=== PATIENT | female | born 1980 | race African-American/Black ===

== ENCOUNTER 2017-09-01 13:11 | Emergency (ER) | payer OTHER ==
[~2017-09-01] VITALS: Ht 172.7 cm; Wt 165.0 kg
[~2017-09-01 13:11] MED LIST: ACET325 PO; BUME0.5T PO; GABA250S PO; LORTA10 PO; OXYB5TAB PO; SPIR25TA PO; VENTAER INH; ZOCO40TA PO; ZOLO50TA PO
[2017-09-01 13:14] VITALS: BP 129/68; PULSE 76; RESP 14; TEMP 97.9; O2SAT 97
[2017-09-01] MEDS ORDERED: ROBA500T PO (13:38)
[2017-09-01] MEDS ORDERED: MEDR4PAK PO (13:38)
--- NOTE | 2017-09-01 13:39 | PD ---
HPI Chief Complaint: Hip Injury Time Seen by Provider: 13:35 Travel History International Travel<30 days: No Contact w/Intl Traveler<30days: No Traveled to known affect area: No History of Present Illness HPI 37-year-old female presents to the emergency department with complaint of left hip pain for the past 3 days. Reports history of arthritis in her hips. Pain radiates down the left leg. Denies new or recent injury. Denies encopresis, incontinence, saddle anesthesias. Denies change in stool or urine. Denies IV drug use or cancer. Denies fever, abdominal pain, vomiting. Denies difficulty ambulating. Denies loss of sensation, decreased range of motion, decreased strength bilateral lower 2 days. Reports paresthesias feet. Symptoms are mild in severity. Pain is worse with movement. Pain is decreased with the left leg elevated. Has taken prescribed Lortab 10 mg with minimal relief of pain. Allergies to prochlorperazine, tuberculin, purified protein derivative. Dr. Thakur is primary care provider. Has no medical complaints. No other modifying factors or associated signs and symptoms. PFSH Past Medical History Hx Anticoagulant Therapy: No Arthritis: Yes Asthma: Yes Blood Disorders: No Anxiety: Yes Depression: Yes Heart Rhythm Problems: No Cancer: No Cardiovascular Problems: No High Cholesterol: Yes Chemotherapy: No Chest Pain: No Congestive Heart Failure: Yes COPD: No Cerebrovascular Accident: No Diabetes: No Diminished Hearing: No Endocrine: No Genitourinary: No Hepatitis: Yes (B) Hiatal Hernia: No Hypertension: No Immune Disorder: Yes (HEP. B) Implanted Vascular Access Dvce: No Musculoskeletal: Yes (RA) Neurologic: No Psychiatric: No Reproductive: No Respiratory: No Immunizations Current: Yes Sleep Apnea: No Thyroid Disease: No ?: Not : 5 Para: 6 Miscarriage: 0 : 0 Tubal Ligation: Yes (2006) Past Surgical History Abdominal Surgery: Yes (GASTRIC BYPASS 11/2013 [facility] ) Section: Yes (X2) Gynecologic Surgery: Yes (tubal ligation, 2 , uterine ablation) Hysterectomy: No Other Surgery: Yes (HERNIA REMOVAL 2012) Social History Alcohol Use: No Tobacco Use: No Substance Use: Yes (OCCASIONAL) Allergies-Medications (Allergen,Severity, Reaction): Coded Allergies: prochlorperazine (Verified Allergy, Severe, 11/3/17) tuberculin, purified protein deriva (Verified Allergy, Intermediate, ARM SWELLING, 09/01/17) Reported Meds & Prescriptions Reported Meds & Active Scripts Active Medrol Dosepak (Methylprednisolone) 4 Mg Dspk 4 Mg PO DIRECTED Per Pharmacist direction Robaxin (Methocarbamol) 500 Mg Tab 500 Mg PO QID PRN Reported Zoloft (Sertraline HCl) 50 Mg Tab 50 Mg PO DAILY Tylenol (Acetaminophen) 325 Mg Tab 325 Mg PO Q4H Zocor 40 mg (Simvastatin) 40 Mg Tab 1 Tab PO HS Neurontin (Gabapentin) 250 Mg/5 Ml Priya 300 Mg PO TID Bumex (Bumetanide) 0.5 Mg Tab 1 Mg PO BID Spironolactone 25 Mg Tab 25 Mg PO DAILY Hydrocodone/Acetaminophen 10 mg/325 mg 10 Mg/325 Mg Tab 1 Tab PO Q4H PRN Ventolin Hfa (Albuterol Sulfate) 18 Gm Aero 2 Puff INH DIRECTED Oxybutynin Chloride Er (Oxybutynin Chloride) 5 Mg Tab 5 Mg PO TID Review of Systems Except as stated in HPI: all other systems reviewed are Neg Physical Exam Narrative GENERAL: Well-nourished, well-developed black female patient, in no acute distress; afebrile, nontoxic-appearing SKIN: Warm and dry. HEAD: Atraumatic. Normocephalic. EYES: Pupils equal and round. No scleral icterus. No injection or drainage. ENT: Mucosa pink and moist. Airway patent. NECK: Trachea midline. CARDIOVASCULAR: Regular rate. RESPIRATORY: No accessory muscle use. GASTROINTESTINAL: Morbidly obese. MUSCULOSKELETAL: Bilateral lower extremities supple and non-tense with 2+ pedal pulses and sensory intact; with full range of motion and 5/5 strength. She is morbidly obese which limited physical exam: Unable to assess DTRs. Active dorsiflexion and extension of bilateral feet. Unable to assess straight leg raises bilaterally. Ambulatory in room with a limp to the left lower extremity. Sitting up in bed at 90. No obvious deformities. No clubbing. No cyanosis. No edema. BACK: No midline point tenderness on palpation of the lumbar spine. Tenderness on palpation of the left lumbar iliosacral area. No obvious deformities. NEUROLOGICAL: Awake and alert. Oriented 3. No obvious cranial nerve deficits. Motor grossly within normal limits. Normal speech. Moves all extremities. 5/5 strength to all extremities. Sensory intact. PSYCHIATRIC: Appropriate mood and affect; insight and judgment normal. Data Data Last Documented VS Vital Signs Date Time Temp Pulse Resp B/P (MAP) Pulse Ox O2 Delivery O2 Flow Rate FiO2 09/01/17 13:14 97.9 76 14 129/68 (88) 97 Orders Orders Ketorolac Inj (Toradol Inj) (09/01/17 13:45) Orphenadrine Inj (Norflex Inj) (09/01/17 13:45) Ed Discharge Order (09/01/17 13:39) [facility] Medical Decision Making Medical Screen Exam Complete: Yes Emergency Medical Condition: Yes Medical Record Reviewed: Yes Differential Diagnosis Low back pain, sciatica, arthritis Narrative Course 37-year-old female physical examination Consistent with left-sided low back pain with left-sided sciatica. Denies injury. Denies encopresis, incontinence , saddle anesthesias. Denies IV drug use or cancer. No midline tenderness on palpation of the lumbar spine. Patient is ambulatory in the room with a limp to the left lower extremity. Toradol and Norflex administered in the ER. Robaxin, Medrol Dosepak prescribed for home. Patient has prescribed Lortabs for pain. Instructed patient to follow up with primary care provider. Patient verbalizes understanding and agreement with treatment plan. Patient is medically cleared and stable for discharge. Discussed reasons to return to the emergency department. Patient agrees with treatment plan. The patients vital signs are stable and the patient is stable for outpatient follow-up and treatment. Patient discharged home, stable and in no acute distress. Diagnosis Primary Impression: Left-sided low back pain with left-sided sciatica Qualified Codes: M54.42 - Lumbago with sciatica, left side Referrals: Primary Care Physician Patient Instructions: Acute Low Back Pain (ED), General Instructions, Sciatica (ED) Additional Instructions: Tylenol or ibuprofen as directed and as needed for pain Robaxin as prescribed and as needed for muscle spasms Heating pad and/or ice to affected area to reduce pain Avoid aggravating activities; increase activity as tolerated Follow-up with primary care provider Return to emergency department immediately with worsening of symptoms Med/Other Pt SpecificInfo: Prescription(s) given Scripts Methylprednisolone Dosepak (Medrol Dosepak) 4 Mg Dspk 4 MG PO DIRECTED, #1 DSPK 0 Refills Per Pharmacist direction Prov: Elma Avelar 09/01/17 Methocarbamol (Robaxin) 500 Mg Tab 500 MG PO QID Y for MUSCLE SPASM, #30 TAB 0 Refills Prov: Elma Avelar 09/01/17 Disposition: 01 DISCHARGE HOME Condition: Stable Elma Avelar Sep 01, 2017 13:39
[2017-09-01] MEDS ORDERED: ORPHENADRINE INJ 60 MG/2 ML AMP IM ONE (13:45)
[2017-09-01] MEDS ORDERED: KETOROLAC TROMETHAMINE 60 MG/2 ML (IM) VIAL IM ONE (13:45)
== END 2017-09-01 13:52 | disposition home or self-care (01) ==
LOC: NEPK 13:11
DX: M54.42 Lumbago with sciatica, left side (principal); M19.90 Unspecified osteoarthritis, unspecified site; J45.909 Unspecified asthma, uncomplicated; F41.9 Anxiety disorder, unspecified; F32.9 Major depressive disorder, single episode, unspecified; E78.00 Pure hypercholesterolemia, unspecified; I50.9 Heart failure, unspecified; Z79.899 Other long term (current) drug therapy; Z88.8 Allergy status to other drugs, medicaments and biological substances
CPT/HCPCS: 96372; 99284; J1885; J2360

== ENCOUNTER 2017-09-18 17:58 | Emergency (ER) | payer OTHER, MEDICAID ==
[~2017-09-18] VITALS: Ht 172.7 cm; Wt 167.0 kg
[~2017-09-18 17:58] MED LIST changes: +MEDR4PAK PO; +ROBA500T PO
[2017-09-18 18:00] VITALS: BP 127/73; PULSE 61; TEMP 97.9; O2SAT 100
[2017-09-18] MEDS ORDERED: IRON1CAP4 PO (18:24)
[2017-09-18] MEDS ORDERED: POTA-163 PO (18:24)
[2017-09-18] MEDS ORDERED: TIZA4TAB PO (18:24)
[2017-09-18] MEDS ORDERED: ALPR.5 PO (18:24)
[2017-09-18] MEDS ORDERED: NYST1000 SWISH-SWAL (18:24)
--- NOTE | 2017-09-18 18:46 | PD ---
Physical Exam Date Seen by Provider: Sep 18, 2017 Time Seen by Provider: 18:44 Narrative 37-year-old grossly obese female presents emergency Department with worsening left leg pain for the past 4 days. Patient similar complaints couple of weeks ago and treated for sciatica. Patient complains of pain in the left lower calf and ankle. She denies shortness of breath or cough. She states it has felt warm, and increased pain with palpation to the area. Patient is status post gastric bypass stating that she's lost over 200 pounds. Patient is on multiple meds for her chronic pain issues. Recommend moving the patient to a medical bed for rule out DVT. Patient originally seen in K pod with medical bed pending. Data Data Last Documented VS Vital Signs Date Time Temp Pulse Resp B/P (MAP) Pulse Ox O2 Delivery O2 Flow Rate FiO2 09/18/17 18:00 97.9 61 127/73 (91) 100 Room Air Orders Orders Us Leg Venous Doppler (09/18/17 18:27) MDM Medical Record Reviewed: Yes Supervised Visit with EDVIN: Yes Narrative Course Ultrasound is ordered. Further evaluation will be performed once medical bed placement is accomplished. Condition: Stable Timmy Michael Sep 18, 2017 18:46
--- NOTE | 2017-09-18 19:50 | RADRPT ---
EXAM DATE/TIME: 09/18/2017 18:39 [facility] COMPARISON: No previous studies available for comparison. INDICATIONS : Left leg pain. MEDICAL HISTORY : Hypercholesterolemia. Rheumatoid arthritis. Congestive heart failure. Dyspnea. Hepatitis B. SURGICAL HISTORY : Tubal ligation. section. Hernia repair. Uterine ablation. ENCOUNTER: Initial ACUITY: 3 days PAIN SCORE: 5/10 LOCATION: Left leg. TECHNIQUE: Venous ultrasound of the leg was performed from the inguinal ligament to the proximal calf. Real-az e, color Doppler and spectral tracing, compression and augmentation techniques were used. FINDINGS: This is a limited quality examination; the deep venous system is not able to be identified from dista l thigh to proximal calf due to body habitus.. Flow is seen in the proximal and mid superficial femoral vein and a minimal amount of increased flow with distal compression is documented. CONCLUSION: Nondiagnostic study. The deep venous system cannot be evaluated in the distal thigh through proximal calf. Terry Ramirez MD on September 18, 2017 at 19:46 Board Certified Radiologist. This report was verified electronically.
[2017-09-18] MEDS ORDERED: PRED50 PO (20:25)
[2017-09-18] MEDS ORDERED: PERC5TAB12 PO (20:25)
--- NOTE | 2017-09-18 20:26 | PD ---
HPI Chief Complaint: Musculoskeletal Complaint Time Seen by Provider: 18:21 Travel History International Travel<30 days: No Contact w/Intl Traveler<30days: No Traveled to known affect area: No History of Present Illness HPI This patient was initially evaluated by the PA in triage, and because he is ruling out a DVT in the left lower extremity, the patient was transferred to the medical pod for lower extremity ultrasound. See his note for further details. This a 37-year-old female who is here for evaluation of left lower back pain and left leg pain worsening over the last 4 days. Pain is sharp, radiates down her posterior left leg to her foot and is worse with movements. Pain is 10 out of 10, constant. Because of the patient's obesity, the PA was concerned about possible DVT. The patient denies chest pain or dyspnea. No history of DVT or PE. No urinary or bowel incontinence or retention. No trauma. No fevers. PFSH Past Medical History Hx Anticoagulant Therapy: No Arthritis: Yes Asthma: Yes Blood Disorders: No Anxiety: Yes Depression: Yes Heart Rhythm Problems: No Cancer: No Cardiovascular Problems: No High Cholesterol: Yes Chemotherapy: No Chest Pain: No Congestive Heart Failure: Yes COPD: No Cerebrovascular Accident: No Diabetes: No Diminished Hearing: No Endocrine: No Genitourinary: No Hepatitis: Yes (B) Hiatal Hernia: No Hypertension: No Immune Disorder: Yes (HEP. B) Implanted Vascular Access Dvce: No Medical other: Yes (ARTHRITIS) Musculoskeletal: Yes (RA) Neurologic: No Psychiatric: No Reproductive: No Respiratory: No Immunizations Current: Yes Sleep Apnea: No Thyroid Disease: No Tetanus Vaccination: > 5 Years ?: Not : 5 Para: 6 Miscarriage: 0 : 0 Tubal Ligation: Yes (2006) Past Surgical History Abdominal Surgery: Yes (GASTRIC BYPASS 11/2013 [facility] ) Section: Yes (X2) Gynecologic Surgery: Yes (tubal ligation, 2 , uterine ablation) Hysterectomy: No Other Surgery: Yes (HERNIA REMOVAL 2012) Social History Alcohol Use: No Tobacco Use: No Substance Use: Yes (OCCASIONAL) Allergies-Medications (Allergen,Severity, Reaction): Coded Allergies: prochlorperazine (Verified Allergy, Severe, 09/18/17) tuberculin, purified protein deriva (Verified Allergy, Intermediate, ARM SWELLING, 09/18/17) Reported Meds & Prescriptions Reported Meds & Active Scripts Active Medrol Dosepak (Methylprednisolone) 4 Mg Dspk 4 Mg PO DIRECTED Per Pharmacist direction Robaxin (Methocarbamol) 500 Mg Tab 500 Mg PO QID PRN Reported Chromagen Softgel ([id number]) 75-60-1 Mg Capsule 1 Cap PO DAILY Potassium Chloride ER (Potassium Chloride) 20 Meq Tab 20 Meq PO DAILY Nystatin Liq 100,000 unit/ml Susp 5 Ml SWISH-SWAL QID Xanax (Alprazolam) 0.5 Mg Tab 0.5 Mg PO BID PRN Tizanidine (Tizanidine HCl) 4 Mg Tab 4 Mg PO TID Zoloft (Sertraline HCl) 50 Mg Tab 50 Mg PO DAILY Tylenol (Acetaminophen) 325 Mg Tab 325 Mg PO Q4H Zocor 40 mg (Simvastatin) 40 Mg Tab 1 Tab PO HS Neurontin (Gabapentin) 250 Mg/5 Ml Priya 600 Mg PO TID Bumex (Bumetanide) 0.5 Mg Tab 1 Mg PO BID Spironolactone 25 Mg Tab 25 Mg PO DAILY Hydrocodone/Acetaminophen 10 mg/325 mg 10 Mg/325 Mg Tab 1 Tab PO Q4H PRN Ventolin Hfa (Albuterol Sulfate) 18 Gm Aero 2 Puff INH DIRECTED Oxybutynin Chloride Er (Oxybutynin Chloride) 5 Mg Tab 5 Mg PO TID Review of Systems Except as stated in HPI: all other systems reviewed are Neg Physical Exam Narrative GENERAL: Well-developed, well-nourished, overweight, awake, alert, comfortable, no apparent distress. SKIN: Focused skin assessment warm/dry. HEAD: Atraumatic. Normocephalic. EYES: Pupils equal and round. No scleral icterus. No injection or drainage. ENT: Mucous membranes pink and moist. NECK: Trachea midline. No JVD. CARDIOVASCULAR: Regular rate and rhythm. Bilateral dorsalis pedis pulses are brisk and equal. RESPIRATORY: No accessory muscle use. Clear to auscultation. Breath sounds equal bilaterally. GASTROINTESTINAL: Abdomen soft, non-tender, nondistended. Hepatic and splenic margins not palpable. MUSCULOSKELETAL: No obvious deformities. No clubbing. No cyanosis. No numbness at the left SI joint. No midline vertebral step-off or tenderness. Normal range of motion in all joints and extremities. All compartments in bilateral lower extremities are supple. NEUROLOGICAL: Awake and alert. No obvious cranial nerve deficits. Motor grossly within normal limits. Normal speech. No saddle anesthesia. Normal motor/sensory to bilateral upper and lower extremities. PSYCHIATRIC: Appropriate mood and affect; insight and judgment normal. Data Data Last Documented VS Vital Signs Date Time Temp Pulse Resp B/P (MAP) Pulse Ox O2 Delivery O2 Flow Rate FiO2 09/18/17 18:00 97.9 61 127/73 (91) 100 Room Air Orders Orders Us Leg Venous Doppler (09/18/17 18:27) Ketorolac Inj (Toradol Inj) (09/18/17 20:30) Oxycodone-Acetamin 5-325 Mg (Percocet (09/18/17 20:30) Prednisone (Deltasone) (09/18/17 20:30) MDM Medical Decision Making Medical Screen Exam Complete: Yes Emergency Medical Condition: Yes Differential Diagnosis Sciatica, DVT Narrative Course Vital signs show heart rate 61, blood pressure 127/73, pulse ox 100% on room air , oral temp of 97.9F. Left lower extremity venous duplex ultrasound: CONCLUSION: Nondiagnostic study. The deep venous system cannot be evaluated in the distal thigh through proximal calf. Case discussed with on-call reading radiologist who states that there are no signs of DVT in the areas that were able to be evaluated, and that there are no signs to increase the suspicion of DVT in these areas. With more likely diagnosis of sciatica, and is reasonable to treat for sciatica and have the patient follow-up with their primary care physician for further workup as an outpatient. Patient was made aware of all findings and a plan. Again she does not have any red flags for low back pain. She is stable for discharge home with further workup as an outpatient. She'll be given a perception for pain medication and muscle relaxants. She was advised on when to return to the emergency department. She verbalizes understanding and agreement with plan. Diagnosis Primary Impression: Sciatica Qualified Codes: M54.32 - Sciatica, left side Referrals: Primary Care Physician 3 days Additional Instructions: Follow-up with your primary care physician this week. Return to the emergency department for worsening symptoms or any other concerns. Scripts Prednisone (Prednisone) 50 Mg Tab 50 MG PO DAILY for 5 Days, #5 TAB 0 Refills Prov: Sudhir Winslow MD 09/18/17 Oxycodone-Acetaminophen (Percocet) 5-325 mg Tab 1 TAB PO Q6H Y for PAIN, #15 TAB 0 Refills Prov: Sudhir Winslow MD 09/18/17 Disposition: 01 DISCHARGE HOME Condition: Stable Sudhir Winslow MD Sep 18, 2017 20:26
[2017-09-18] MEDS ORDERED: oxyCODONE/ACETAMINOPHEN 5 MG/325 MG TAB PO ONE (20:30)
[2017-09-18] MEDS ORDERED: KETOROLAC TROMETHAMINE 60 MG/2 ML (IM) VIAL IM ONE (20:30)
[2017-09-18] MEDS ORDERED: predniSONE 50 MG TAB PO ONE (20:30)
== END 2017-09-18 20:56 | disposition home or self-care (01) ==
LOC: NEPD 17:58
DX: M54.32 Sciatica, left side (principal); M54.5 Low back pain; E66.9 Obesity, unspecified; J45.909 Unspecified asthma, uncomplicated; F41.9 Anxiety disorder, unspecified; I11.0 Hypertensive heart disease with heart failure; I50.9 Heart failure, unspecified; M06.9 Rheumatoid arthritis, unspecified; E78.00 Pure hypercholesterolemia, unspecified
CPT/HCPCS: 93971; 96372; 99285; J1885; J7512

== ENCOUNTER 2017-11-27 23:50 | Emergency (ER) | payer MEDICAID, OTHER ==
[~2017-11-27] VITALS: Ht 170.2 cm; Wt 170.0 kg
[~2017-11-27 23:50] MED LIST changes: +ALPR.5 PO; +IRON1CAP4 PO; +NYST1000 SWISH-SWAL; +PERC5TAB12 PO; +POTA-163 PO; +PRED50 PO; +TIZA4TAB PO
[2017-11-27 23:51] VITALS: BP 102/74; PULSE 60; RESP 16; TEMP 97.8; O2SAT 100
--- NOTE | 2017-11-28 00:33 | PD ---
HPI Chief Complaint: Injury Time Seen by Provider: 00:23 Travel History International Travel<30 days: No Contact w/Intl Traveler<30days: No Traveled to known affect area: No History of Present Illness HPI 37-year-old black female presents to emergency department with complains of bilateral ankle pain. She states that she's been having pain in both ankles now radiation up into her legs and back for the past 4 days. She states that she was seen by her doctor last week for a medical checkup unrelated to her ankle pain. According to the medical record from triage she has stated that she has actually had pain since . The patient denies this. She also goes on to state that she's had some increased urinary frequency and dysuria this past week. She denies any fever or chills. No chest pain or shortness of breath. No nausea vomiting. No abdominal pain. No vaginal complaints. Symptoms are moderate. Worse with weightbearing. No alleviating factors. PFSH Past Medical History Hx Anticoagulant Therapy: No Arthritis: Yes Asthma: Yes Blood Disorders: No Anxiety: Yes Depression: Yes Heart Rhythm Problems: No Cancer: No Cardiovascular Problems: No High Cholesterol: Yes Chemotherapy: No Chest Pain: No Congestive Heart Failure: Yes COPD: No Cerebrovascular Accident: No Diabetes: No Diminished Hearing: No Endocrine: No Genitourinary: No Hepatitis: Yes (B) Hiatal Hernia: No Hypertension: No Immune Disorder: Yes (HEP. B) Implanted Vascular Access Dvce: No Musculoskeletal: Yes (RA) Neurologic: No Psychiatric: No Reproductive: No Respiratory: No Immunizations Current: Yes Sleep Apnea: No Thyroid Disease: No : 5 Para: 6 Miscarriage: 0 : 0 Tubal Ligation: Yes (2006) Past Surgical History Abdominal Surgery: Yes (GASTRIC BYPASS 11/[address] [facility] [place] ) Section: Yes (X2) Gynecologic Surgery: Yes (tubal ligation, 2 , uterine ablation) Hysterectomy: No Other Surgery: Yes (HERNIA REMOVAL 2012) Social History Alcohol Use: No Tobacco Use: No Substance Use: Yes (OCCASIONAL) Allergies-Medications (Allergen,Severity, Reaction): Coded Allergies: prochlorperazine (Verified Allergy, Severe, 11/27/17) tuberculin, purified protein deriva (Verified Allergy, Intermediate, ARM SWELLING, 11/27/17) Reported Meds & Prescriptions Reported Meds & Active Scripts Active Medrol Dosepak (Methylprednisolone) 4 Mg Dspk 4 Mg PO DIRECTED Per Pharmacist direction Macrobid (Nitrofurantoin Monoh/Nitrofur Macro) 100 Mg Cap 100 Mg PO BID 10 Days Reported Chromagen Softgel (Clrg-P-Fzwkhj-[id number]-Zn) 75-60-1 Mg Capsule 1 Cap PO DAILY Nystatin Liq 100,000 unit/ml Susp 5 Ml SWISH-SWAL QID Xanax (Alprazolam) 0.5 Mg Tab 0.5 Mg PO BID PRN Tizanidine (Tizanidine HCl) 4 Mg Tab 4 Mg PO TID Tylenol (Acetaminophen) 325 Mg Tab 325 Mg PO Q4H Zocor 40 mg (Simvastatin) 40 Mg Tab 1 Tab PO HS Neurontin (Gabapentin) 250 Mg/5 Ml Priya 600 Mg PO TID Bumex (Bumetanide) 0.5 Mg Tab 1 Mg PO BID Spironolactone 25 Mg Tab 25 Mg PO DAILY Hydrocodone/Acetaminophen 10 mg/325 mg 10 Mg/325 Mg Tab 1 Tab PO Q4H PRN Ventolin Hfa (Albuterol Sulfate) 18 Gm Aero 2 Puff INH DIRECTED Oxybutynin Chloride Er (Oxybutynin Chloride) 5 Mg Tab 5 Mg PO TID Review of Systems Except as stated in HPI: all other systems reviewed are Neg Physical Exam Narrative GENERAL: This is a morbidly obese, well-developed patient, in no apparent distress. SKIN: No rashes, ecchymoses or lesions. Warm and dry. HEAD: Atraumatic. Normocephalic. EYES: PERRL, EOMI, no discharge or injection. No scleral icterus. EARS: Clear NOSE: Nasal turbinates appear normal. THROAT: Mucosa pink and moist. Airway patent. NECK: Trachea midline. supple, moves head freely. LUNGS: Clear to auscultation. CV: Regular in rhythm. ABDOMEN: Soft nontender. Obese. No guarding or rebound. EXT: No clubbing cyanosis. Patient has a very large body habitus. She complains of pain in both ankles. There is arthritic changes noted. There is no erythema, warmth. The skin is intact. She has intact sensation with good distal pulses. Data Data Last Documented VS Vital Signs Date Time Temp Pulse Resp B/P (MAP) Pulse Ox O2 Delivery O2 Flow Rate FiO2 11/27/17 23:51 97.8 60 16 102/74 (83) 100 Room Air Orders Orders Urinalysis - C+S If Indicated (11/28/17 00:25) Urine Culture (11/28/17 00:45) Prednisone (Deltasone) (11/28/17 01:45) Nitrofurantoin Monohyd Macrocr (Macrobid (11/28/17 01:45) Ed Discharge Order (11/28/17 01:34) Labs Laboratory Tests Test 11/28/17 00:45 Urine Color DARK-YELLOW Urine Turbidity HAZY Urine pH 5.5 Urine Specific [place] 1.030 Urine Protein TRACE mg/dL Urine Glucose (UA) NEG mg/dL Urine Ketones NEG mg/dL Urine Occult Blood NEG Urine Nitrite NEG Urine Bilirubin NEG Urine Urobilinogen 4.0 MG/DL Urine Leukocyte Esterase LARGE Urine RBC 13 /hpf Urine WBC 86 /hpf Urine Squamous Epithelial Cells 2 /hpf Urine Mucus FEW /lpf Microscopic Urinalysis Comment CULTURE INDICATED MDM Medical Decision Making Medical Screen Exam Complete: Yes Emergency Medical Condition: Yes Medical Record Reviewed: Yes Interpretation(s) Laboratory Tests Test 11/28/17 00:45 Urine Color DARK-YELLOW Urine Turbidity HAZY Urine pH 5.5 Urine Specific [place] 1.030 Urine Protein TRACE mg/dL Urine Glucose (UA) NEG mg/dL Urine Ketones NEG mg/dL Urine Occult Blood NEG Urine Nitrite NEG Urine Bilirubin NEG Urine Urobilinogen 4.0 MG/DL Urine Leukocyte Esterase LARGE Urine RBC 13 /hpf Urine WBC 86 /hpf Urine Squamous Epithelial Cells 2 /hpf Urine Mucus FEW /lpf Microscopic Urinalysis Comment CULTURE INDICATED Differential Diagnosis Differential diagnosis: Sprain, strain, arthritis, UTI Narrative Course Patient is UA is positive for UTI. She is given Macrobid 100 mg by mouth. She' s also given 40 mg of Deltasone by mouth. Patient has chronic osteoarthritis. She is currently taking hydrocodone. History of gastric bypass and acute kidney injury in the past and says will be held. She is advised to follow-up with her primary care doctor. Increase fluids and take medications as directed. She'll call her doctor regarding her need for opiate adjustment. Diagnosis Primary Impression: UTI (urinary tract infection) Qualified Codes: N30.01 - Acute cystitis with hematuria Additional Impression: Osteoarthritis Qualified Codes: M19.071 - Primary osteoarthritis, right ankle and foot; M19.072 - Primary osteoarthritis, left ankle and foot Patient Instructions: General Instructions Additional Instructions: Rest. Elevation. Medications as directed. Contact her doctor regarding changes in your pain medications. Follow-up with your doctor in the next 2 days for recheck. Return to the ER for emergencies. Med/Other Pt SpecificInfo: Prescription(s) given Scripts Methylprednisolone Dosepak (Medrol Dosepak) 4 Mg Dspk 4 MG PO DIRECTED, #1 DSPK 0 Refills Per Pharmacist direction Prov: Luis Eduardo Lee MD 11/28/17 Nitrofurantoin Monohydrate Macrocrystals (Macrobid) 100 Mg Cap 100 MG PO BID for Infection for 10 Days, #20 CAP 0 Refills Prov: Luis Eduardo Lee MD 11/28/17 Disposition: 01 DISCHARGE HOME Condition: Stable Lux Jasmine Nov 28, 2017 00:33
[2017-11-28 01:24] LABS: BILIRUBIN, URINE NEG (NEG); BLOOD, URINE NEG (NEG); GLUCOSE,URINE NEG (NEG); KETONE, URINE NEG (NEG); MUCUS URINE FEW /lpf (OCC); NITRITE,URINE NEG (NEG); PH, URINE 5.5 (5.0-8.5); SQUAMOUS EPITHELIAL CELL URINE 2 /hpf (0-5); URINE COLOR DARK-YELLOW (YELLW/STRAW); URINE LEUKOCYTE ESTERASE LARGE (NEG)
[2017-11-28] MEDS ORDERED: MEDR4PAK PO (01:32)
[2017-11-28] MEDS ORDERED: MACR100C2 PO (01:32)
[2017-11-28] MEDS ORDERED: NITROFURANTOIN MONOHYD MACROCR 100 MG CAP PO ONE (01:45)
[2017-11-28] MEDS ORDERED: predniSONE 20 MG TAB PO ONE (01:45)
== END 2017-11-28 02:08 | disposition home or self-care (01) ==
LOC: NEPK 23:50
DX: R30.0 Dysuria (principal); N30.01 Acute cystitis with hematuria; M19.072 Primary osteoarthritis, left ankle and foot; M19.071 Primary osteoarthritis, right ankle and foot; J45.909 Unspecified asthma, uncomplicated; E78.00 Pure hypercholesterolemia, unspecified; F32.9 Major depressive disorder, single episode, unspecified; I50.9 Heart failure, unspecified; F41.9 Anxiety disorder, unspecified; B19.10 Unspecified viral hepatitis B without hepatic coma; Z98.84 Bariatric surgery status
CPT/HCPCS: 81001; 87086; 99284; J7512